=== PATIENT | male | born 1985 | race African-American/Black ===

== ENCOUNTER 2019-01-18 16:42 | Inpatient (IN) | payer OTHER ==
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
[2019-01-18] MEDS ORDERED: NS 1,000 ML IV ONE (17:00)
[2019-01-18] MEDS ORDERED: ceFAZolin 2 GM/DEXTROSE 100 ML IV ONE (17:03)
[2019-01-18 17:16] LABS: PLATELET COUNT 614 10^3/uL (150-400)
[2019-01-18] MEDS ORDERED: ONDANSETRON 4 MG/2 ML VIAL IVP PRN (18:51)
[2019-01-18] MEDS ORDERED: ONDANSETRON DISINTEGRATING 4 MG TAB PO PRN (18:51)
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
[2019-01-18] MEDS: NICOTINE 7 MG/24 HR PATCH TD SCH (21:04)
[2019-01-18] MEDS: ACETAMINOPHEN 325 MG TAB PO PRN (21:04)
[2019-01-19] MEDS: KETOROLAC 15 MG/1 ML SDV IVP PRN ×4 (00:26→23:59)
[2019-01-19] MEDS: ceFAZolin 2 GM/DEXTROSE 100 ML IV SCH ×3 (00:27→17:37)
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
[2019-01-19] MEDS: OMEGA-3 FATTY ACIDS 1,000 MG CAP PO SCH (09:52)
[2019-01-19] MEDS: ENOXAPARIN 40 MG/0.4 ML SYR SC SCH (09:52)
[2019-01-19] MEDS: NICOTINE 7 MG/24 HR PATCH TD SCH ×2 (09:53→17:50)
--- NOTE | 2019-01-19 14:03 | HOSPPROG ---
Hospitalist Progress Note Assessment/Plan: 33y male with right leg pain and swelling. First encounter, chart reviewed. #RLE cellulitis -related to trauma -cont IV ancef -improving #RLE edema -elevate -improved #Nicotine dep -cessation education #ETOH -educated #hyponatremia -resolved #Leukocytosis -improved with abx #Pain -stable #Anemia - follow #Dispo - unclear - needs further IV abx -D/W CM Subjective: Feeling ok. Less swelling in ankle. Pain stable. Objective: Vital Signs Temp Pulse Resp BP Pulse Ox 37.1 C 90 14 113/60 96 01/19/19 11:51 01/19/19 11:51 01/19/19 11:51 01/19/19 11:51 01/19/19 11:51 Laboratory Results 01/19/19 04:20 01/19/19 04:20 01/18/19 01/19/19 01/20/19 05:59 05:59 05:59 Output Total 1050 875 Balance -1050 -875 - Physical Exam Constitutional: no apparent distress, appears nourished, not in pain Eyes: PERRL, anicteric sclera, EOMI Ears, Nose, Mouth, Throat: moist mucous membranes, hearing normal, ears appear normal Cardiovascular: regular rate and rhythym, edema, No JVD Respiratory: no respiratory distress, no rales or rhonchi, reduced air movement Gastrointestinal: normoactive bowel sounds, No tenderness, No ascites Skin: warm, erythema, induration Musculoskeletal: no joint effusions, joint tenderness, generalized weakness Neurologic: AAOx3 Psychiatric: interacting appropriately, not anxious, not encephalopathic ICD10 Worksheet Patient Problems: Problems Problem Status Onset Cellulitis of right lower extremity Acute Cellulitis of right foot Acute
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
[2019-01-19] MEDS: CEPACOL LOZENGE PO PRN (21:01)
[2019-01-20] MEDS: CEPACOL LOZENGE PO PRN ×3 (00:04→19:28)
[2019-01-20] MEDS: KETOROLAC 15 MG/1 ML SDV IVP PRN ×2 (08:43→17:21)
[2019-01-20] MEDS: OMEGA-3 FATTY ACIDS 1,000 MG CAP PO SCH (08:44)
[2019-01-20] MEDS: ceFAZolin 2 GM/DEXTROSE 100 ML IV SCH ×3 (08:44→17:21)
[2019-01-20] MEDS: ENOXAPARIN 40 MG/0.4 ML SYR SC SCH (08:44)
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
--- NOTE | 2019-01-20 16:54 | ASMTCMCOM ---
CM Note CM Note Notes: CRYSTAL discussed patient case with Susan QURESHI and Erma Jaramillo. Patient currently on IV antibiotics, likely to discharge tomorrow to fpc bed. CM met with patient, he shares he understands he may be discharged tomorrow to a fpc bed. He states he is concerned about his ability to get around and would like see if he can leave with a walker/cane/assitive device. Wound care to evaluate foot tomorrow morning. PT eval recommended cane, walker, crutches. Patient shares he hasn't discussed health coverage with anyone, CM sent email to [employer] for Medicaid evaluation. CM to follow. D/C Plan: Snf bed Date Signed: 01/20/2019 04:53 PM Electronically Signed By:Chanda James
[2019-01-20] MEDS: NICOTINE 7 MG/24 HR PATCH TD SCH (17:19)
[2019-01-21] MEDS: ceFAZolin 2 GM/DEXTROSE 100 ML IV SCH ×3 (01:40→16:12)
[2019-01-21] MEDS: KETOROLAC 15 MG/1 ML SDV IVP PRN ×3 (02:24→23:49)
[2019-01-21] MEDS: OMEGA-3 FATTY ACIDS 1,000 MG CAP PO SCH (09:33)
[2019-01-21] MEDS: ENOXAPARIN 40 MG/0.4 ML SYR SC SCH (09:33)
[2019-01-21 10:27] LABS: PLATELET COUNT 678 10^3/uL (150-400)
--- NOTE | 2019-01-21 14:29 | ASMTCMCOM ---
CM Note CM Note Notes: Pts case discussed w/ Taniya Ron, KIERA and Brigida w/ wound care. Pt may need surgery. CM able to assist w/ care home bed reservation and bus pass. Pt will most likely need to d/c to care home when medically stable. Pt does not have any medical insurance. CM spoke to [employer] about possible evaluation. CM available for changes. Plan: Independent/Care Home Date Signed: 01/21/2019 02:29 PM Electronically Signed By:SAMANTHA Young
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
--- NOTE | 2019-01-21 14:55 | WOCRNPDOC ---
WOCRN Advanced Assessment Note - Skin Integrity Problem, Advanced Assess Left Second Toe Dressing Type: Open to Air Exudate Amount: Moderate Exudate Characteristic(s): Sanguinopurulent Antoinette Wound Tissue: Erythema, Swollen Wound Bed Constitution: Intact Purulent Blister Wound Edges: Not Attached Site Measurement - Head-to-Toe Length X Width X Depth (cm): 1.2x2 Skin Integrity Problem Comment: Small wounds on dorsal toe. Distal to the wound openings there is a fluctuant area that appears to be a developing purulent blister. When this area is pressed purulence is expressed through the wound openings. The entire tip of the patient's toe is swollen and fluctuant. Cleaned wounds well with saline and gauze. Stalin QURESHI applied silvasorb, telfa and secured with jerry. Wound care will follow. Right Anterior Ankle Dressing Type: Open to Air Exudate Amount: Minimal Exudate Characteristic(s): Serosanguinous Integumentary Issue Intervention: Dressing Applied Antoinette Wound Tissue: Erythema, Swollen Antoinette Wound Swelling: Moderate Wound Bed Constitution: Granulation Tissue (100%) Wound Edges: Attached Site Measurement - Head-to-Toe Length X Width X Depth (cm): 1.8x4.3x0.3 Skin Integrity Problem Comment: Healing wound, however there is significant swelling and erythema in the entire ankle. Cleaned with ns and gauze. Silvasorb to wound bed. Covered with Allevyn Life dressing. Right Medial Ankle Dressing Type: Open to Air Exudate Amount: Moderate Exudate Characteristic(s): Sanguinopurulent Integumentary Issue Intervention: Dressing Applied Antoinette Wound Tissue: Erythema Antoinette Wound Swelling: Moderate Wound Bed Constitution: Undermining (10-1 oclock 1 cm ), Tendon, Adhered Slough Site Measurement - Head-to-Toe Length X Width X Depth (cm): 0.8x1.8x1 Skin Integrity Problem Comment: Two wound openings that are covering one larger wound. The two smaller openings are approximately 0.5x0.5 each and are seperated by a skin bridge of 0.5 at 3 and 9 oclock respectively. Flushed wound well with ns. Covered with Allevyn life. Shashi and Inez RN's in room and assisted with care. Reported findings to Dr. Tracey, and requested a surgical consultation for possible debridement. Wound care will follow.
[2019-01-21] MEDS: NICOTINE 7 MG/24 HR PATCH TD SCH (16:13)
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
[2019-01-22] MEDS: ceFAZolin 2 GM/DEXTROSE 100 ML IV SCH ×3 (00:30→16:21)
[2019-01-22 05:10] LABS: PLATELET COUNT 716 10^3/uL (150-400)
[2019-01-22] MEDS: ENOXAPARIN 40 MG/0.4 ML SYR SC SCH (09:04)
[2019-01-22] MEDS: OMEGA-3 FATTY ACIDS 1,000 MG CAP PO SCH (09:04)
[2019-01-22] MEDS: KETOROLAC 15 MG/1 ML SDV IVP PRN ×2 (09:11→16:20)
[2019-01-22] MEDS: CEPACOL LOZENGE PO PRN (10:37)
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
[2019-01-22] MEDS: NICOTINE 7 MG/24 HR PATCH TD SCH (16:20)
[2019-01-22] MEDS: ACETAMINOPHEN 325 MG TAB PO PRN ×2 (16:20→20:33)
[2019-01-23] MEDS: ceFAZolin 2 GM/DEXTROSE 100 ML IV SCH ×2 (01:06→07:42)
[2019-01-23 05:34] LABS: PLATELET COUNT 728 10^3/uL (150-400)
[2019-01-23] MEDS: KETOROLAC 15 MG/1 ML SDV IVP PRN ×2 (07:41→13:39)
[2019-01-23] MEDS: OMEGA-3 FATTY ACIDS 1,000 MG CAP PO SCH (07:42)
[2019-01-23] MEDS: ENOXAPARIN 40 MG/0.4 ML SYR SC SCH (07:43)
[2019-01-23 08:04] VITALS: BP 121/74
--- NOTE | 2019-01-23 08:38 | SOAPPROG ---
SOAP Progress Note Assessment/Plan: Assessment/Plan: Wound cultures w/o sensitivities Strep pyogenes Pseudomonas Normal WBC/Afebrile Wounds improving Cellulitis resolved Edema resolving Continue leg elevation and daily shower/wash out Abx may be stopped (not likely to be contributing to improvement) Bacitracin BID and DSD to left toe and right ankle F/u in clinic in 1 week post d/c Has place to go on d/c 01/23/19 08:33 Objective: Vital Signs Temp Pulse Resp BP Pulse Ox 36.9 C 71 16 121/74 H 98 01/23/19 08:03 01/23/19 08:03 01/23/19 08:03 01/23/19 08:03 01/23/19 08:03 Microbiology 01/21/19 17:51 Gram Stain - Final Ankle - Swab Laboratory Results 01/23/19 04:28 01/22/19 04:25 01/22/19 01/23/19 01/24/19 05:59 05:59 05:59 Intake Total 450 1200 Output Total 1550 Balance -1100 1200 ICD10 Worksheet Patient Problems: Problems Problem Status Onset Cellulitis of right foot Acute Cellulitis of right lower extremity Acute
--- NOTE | 2019-01-23 08:57 | HOSPPROG ---
Hospitalist Progress Note Assessment/Plan: 33y male with right leg pain and swelling. #RLE cellulitis- - IV ancef. General surgery consulted at the request of wound care and recommends continued wound care and close monitoring. -dc on augmentin #+BC- 1/2 grew out coag negative staph. Staph hominis. likely contaminant -contaminate #RLE edema -elevate -improved #Left second toe infection -better with abx #Nicotine dep -cessation education #ETOH -educated #hyponatremia -resolved #Leukocytosis -improved with abx #Pain -stable #Anemia -stable #plan: dc to the [facility] w a few more days of oral abx and f/u with wound clinic if he can Subjective: Roldan is feeling fine, no complaints. Objective: Vital Signs Temp Pulse Resp BP Pulse Ox 36.9 C 71 16 121/74 H 98 01/23/19 08:03 01/23/19 08:03 01/23/19 08:03 01/23/19 08:03 01/23/19 08:03 Microbiology 01/21/19 17:51 Gram Stain - Final Ankle - Swab Laboratory Results 01/23/19 04:28 01/22/19 04:25 01/22/19 01/23/19 01/24/19 05:59 05:59 05:59 Intake Total 450 1200 Output Total 1550 Balance -1100 1200 - Physical Exam Constitutional: no apparent distress, not in pain Eyes: PERRL Ears, Nose, Mouth, Throat: hearing normal Cardiovascular: regular rate and rhythym Respiratory: no respiratory distress Skin: warm, other (right ankle w a skin tear, minimal swelling; some bloody drainage but nothing purulent, left foot (3rd toe) with skin tear) Neurologic: AAOx3 Psychiatric: interacting appropriately ICD10 Worksheet Patient Problems: Problems Problem Status Onset Cellulitis of right foot Acute Cellulitis of right lower extremity Acute
--- NOTE | 2019-01-23 09:21 | ASMTLACE ---
LACE Length of stay for Answers: 4-6 days current admission Acuity / Level of Answers: Yes Care: Did the patient have an inpatient admission? # of Emergency department Answers: 1-2 visits in the last 6 months Social determinants Answers: History of substance abuse (ETOH, street drugs, prescription drugs, etc.) Homelessness (street, senior living) Lack of community resources and/or lack of social support (no pcp, lives alone, transportation, ezio d) Score: 18 Date Signed: 01/23/2019 09:20 AM Electronically Signed By:SAMANTHA Young
--- NOTE | 2019-01-23 10:43 | ASMTDCNOTE ---
Case Management Discharge Discharge Order Complete? Answers: Yes Patient to Obtain Answers: Independently Medications Transportation Arranged Answers: Bus Tokens EMTALA Complete Answers: No Case Management Transport Answers: No Form Complete Faxed Final Orders Answers: No Agency/Facility Transfer Answers: No Report Printed & Faxed to Receiving Agency Family Notified Answers: No Discharge Comments Notes: Pts case discussed w/ Chasity Ocampo NP. Dr. Thomas completed bedside wash out of his wound yesterday. Pt [facility] being [facility]'d to the [facility]. CM reserved a bed for him. CM mapped pts abx since he does not have any insurance. No other needs at this time. CM available for changes. Plan: Independent Date Signed: 01/23/2019 10:42 AM Electronically Signed By:SAMANTHA Young
[2019-01-23] MEDS ORDERED: BACITRACIN OINTMENT 1 PACKET TP SCH (11:15)
[2019-01-23] MEDS: ACETAMINOPHEN 325 MG TAB PO PRN (11:41)
--- NOTE | 2019-01-23 12:08 | ASMTCMCOM ---
CM Note CM Note Notes: CM met w/ pt and scheduled him for a follow up at [facility]. Pt reports that he may reschedule it for 01/25. CM provided pt w/ a bus pass. No other needs at this time. Please follow up with: [facility] [address] [place] [id number] [place] [address] MARGA Shi (purple pod) 01/24/19 at 12PM Arrive 20 minutes prior to your appointment, bring photo ID, list of all meds, d/c paperwork. Date Signed: 01/23/2019 12:08 PM Electronically Signed By:SAMANTHA Young
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
== END 2019-01-23 14:49 | disposition home or self-care (01) | DRG 603 ==
LOC: F3E 20:16
PROVIDERS: ADMIT Internal Medicine; ATTEND Internal Medicine
DX: L03.115 Cellulitis of right lower limb (principal); E87.1 Hypo-osmolality and hyponatremia; V18.0XXS Pedal cycle driver injured in noncollision transport accident in nontraffic accident, sequela; E86.9 Volume depletion, unspecified; L08.9 Local infection of the skin and subcutaneous tissue, unspecified; F17.200 Nicotine dependence, unspecified, uncomplicated; Z72.89 Other problems related to lifestyle; D64.9 Anemia, unspecified; Z59.0 Homelessness; F12.90 Cannabis use, unspecified, uncomplicated
CPT/HCPCS: 96365; 97116-GP; 97161-GP; 97530-GP; J0690; J1650; J1885